=== PATIENT | female | born 1990 | race African-American/Black ===

== ENCOUNTER 2018-01-29 16:48 | Emergency (ER) | payer SELFPAY ==
[~2018-01-29] VITALS: Ht 149.9 cm; Wt 62.6 kg
[2018-01-29] MEDS ORDERED: ASPIRIN 81 MG CHEW TAB PO ONE (17:45)
[2018-01-29] MEDS ORDERED: METOPROLOL TARTRATE 25 MG TAB PO ONE (17:45)
[2018-01-29] MEDS ORDERED: SODIUM CHLORIDE 0.9% 1000ML 1,000 ML IV SCH (18:45)
--- NOTE | 2018-01-29 18:55 | Diagnostic Imaging Report ---
PROCEDURE: A single AP view of the chest. COMPARISON: None. INDICATIONS: CHEST PAIN, ANXIOUS FINDINGS: Lines/tubes: None. Lungs: The lungs are well inflated and clear. There is no evidence of pneumonia or pulmonary edema. Pleura: There is no pleural effusion or pneumothorax. Heart and mediastinum: The heart and the mediastinum are unremarkable. Bones: No acute bony abnormality. IMPRESSION: 1. No acute cardiopulmonary disease. Dictated by: Fran Mahmood M.D. on 01/29/2018 at 18:57 Electronically approved by: Fran Mahmood M.D. on 01/29/2018 at 18:57
[2018-01-29 21:52] LABS: BASOPHILS # (AUTO) 0.1 (0.0-0.1); BASOPHILS % 0.7 % (0.0-1.0); CLARITY,URINE CLEAR (CLEAR); COLOR,URINE YELLOW (YELLOW); EOSINOPHILS % 0.2 % (0.0-6.0); HEMATOCRIT 43.6 % (34.2-44.1); HEMOGLOBIN 14.2 g/dL (12.0-16.0); INR 1.11; KETONES,URINE NEGATIVE (NEGATIVE); LEUKOCYTE ESTERASE ,URINE NEGATIVE (NEGATIVE); LYMPHOCYTES # (AUTO) 2.1 (1.0-3.2); LYMPHOCYTES % 26.1 % (18.0-39.1); MEAN CORPUSCULAR HEMOGLOBIN 26.8 pg (28-32); MEAN CORPUSCULAR HGB CONC 32.6 g/dL (31-35); MEAN CORPUSCULAR VOLUME 82.3 fL (81-99); MONOCYTES # (AUTO) 0.6 (0.2-0.8); MONOCYTES % 7.6 % (4.4-11.3); NEUTROPHILS # (AUTO) 5.3 (2.1-6.9); NEUTROPHILS % 65.2 % (38.7-80.0); NITRITE,URINE NEGATIVE (NEGATIVE); PARTIAL THROMBOPLASTIN TIME 29.2 seconds (23.8-35.5); PLATELET COUNT 371 x10e3/uL (140-360); PROTEIN,URINE DIPSTICK NEGATIVE (NEGATIVE); PROTHROMBIN TIME 13.5 seconds (11.9-14.5); RED CELL DISTRIBUTION WIDTH 14.3 % (11.7-14.4)
[2018-01-29 21:53] LABS: ALANINE AMINOTRANSFERASE 7 IU/L (0-55); ALBUMIN 4.6 g/dL (3.5-5.0); ALBUMIN/GLOBULIN RATIO 1.3 (0.8-2.0); ALKALINE PHOSPHATASE 67 IU/L (40-150); ANION GAP 16.6 mmol/L (8-16); BILIRUBIN,URINE NEGATIVE (NEGATIVE); BLOOD UREA NITROGEN 9 mg/dL (7-26); BUN/CREATININE RATIO 13 (6-25); CALCIUM 9.9 mg/dL (8.4-10.2); CARBON DIOXIDE 18 mmol/L (22-29); CHLORIDE 107 mmol/L (98-107); CREATINE KINASE 47 IU/L (29-168); CREATININE, SERUM 0.71 mg/dL (0.57-1.11); EPITHELIAL CELLS,URINE FEW /LPF; EST GLOMERULAR FILTRATION RATE > 60 ML/MIN (60-); GLUCOSE 126 mg/dL (74-118); POTASSIUM 3.6 mmol/L (3.5-5.1); RBC,URINE 0-5 /HPF (0-5); SODIUM 138 mmol/L (136-145); THYROID STIMULATING HORMONE 0.718 uIU/mL (0.350-4.940); URINE UROBILINOGEN 0.2 mg/dL (0.2 - 1); WBC,URINE (MAN) 0-5 /HPF (0-5)
[2018-01-29 22:44] LABS: FREE T4 (FREE THYROXINE) 1.28 ng/dL (0.9-1.8)
== END 2018-01-29 20:39 | disposition home or self-care (01) ==
LOC: ER 16:48
DX: R05 Cough (principal); J01.00 Acute maxillary sinusitis, unspecified; J01.10 Acute frontal sinusitis, unspecified; R00.0 Tachycardia, unspecified
CPT/HCPCS: 36415; 71045; 80053; 81001; 82550; 82553; 84439; 84443; 84484; 85025; 85610; 85730; 93005 ×2; 99284; J7030